=== PATIENT | male | born 2000 | race Caucasian/White ===

== ENCOUNTER 2025-08-30 09:03 | Emergency (ER) | payer BC, SELFPAY ==
[2025-08-30 09:03] VITALS: BP 132/76; PULSE 94; RESP 18; TEMP 36.4; O2SAT 100; BMI 27.1
--- NOTE | 2025-08-30 09:19 | EDS_ITS ---
HPI History of Present Illness Chief Complaint: Lower Extremity Injury Informant: patient and parent Narrative Narrative: 25-year-old male presenting to the emergency room with a chief complaint of right knee pain. Patient states that last night he was standing in between a golf cart and a trailer and the golf cart needed to accelerate to go over a depth. This resulted in the golf cart impacting his leg and he felt into the trailer. He is unsure if the bumper of the golf cart impacted his knee. But he notes pain in the knee particular with bearing weight. He also notes significant swelling. He notes most of his pain appears to be medially anterior. He notes a bruise on the right lateral thigh. PFSH PFS Home Medications ?Medication ?Instructions ?Recorded ?Last Taken ?Type acetaminophen 325 mg capsule 325 mg PO ONCE PRN Unknown History (Tylenol) prednisone 10 mg tablet See Rx Instructions PO DAILY #30 01/10/22 Unknown Rx tabs Allergy/AdvReac Type Severity Reaction Status Date / Time No Known Allergies Allergy Verified 08/30/25 09:05 Social History Smoking Status: Never smoker ROS ROS ED Constitutional Constitutional ED: Denies chills, fever(s) or weight loss Eyes Eyes: Denies change in vision or diplopia ENT ENT ED: Denies ear pain, rhinorrhea or sore throat Cardiovascular Cardiovascular: Denies chest pain, orthopnea, palpitations or racing heartbeat Respiratory/Chest Respiratory/Chest: Denies cough, dyspnea or orthopnea Gastrointestinal Gastrointestinal: Denies abdominal pain, diarrhea, nausea or vomiting Genitourinary Genitourinary ED: Denies dysuria, hematuria or urinary frequency Musculoskeletal Musculoskeletal: Reports other Details: Right knee pain ; Denies arthralgias or myalgias Integumentary Reports other Details: Right thigh contusion ; Denies abscess or rash Neurologic Neurologic: Denies headache(s) or weakness Psychiatric Psychiatric: Denies anxiety, depression, suicidal ideation or suicidal thoughts Endocrine Endocrinology: Denies polydipsia, polyphagia or polyuria Allergic/Immunologic Allergic/Immunologic ED: Denies mouth swelling, tongue swelling or urticaria EXAM Physical Exam Const Vital Signs: 08/30/25 09:03 Temperature 97.5 F L Temperature Source Oral Pulse Rate 94 Respiratory Rate 18 Blood Pressure 132/76 H Blood Pressure Mean 94 Pulse Ox 100 Oxygen Delivery Method Room Air Positive well nourished and well developed General Appearance ED: well developed HEENT Reports normocephalic, head/scalp atraumatic and moist mucous membranes Eyes PERRL and EOMs intact bilaterally Neck no lymphadenopathy, supple and no JVD Resp normal respiratory effort and clear to auscultation bilaterally Cardio regular rate, regular rhythm and no murmurs GI normal to inspection, nondistended, normoactive bowel sounds and non-tender Palpation: soft Back/Spine no CVA tenderness and normal ROM Extremity Extremity Narrative: Patient has a significant amount of swelling in the suprapatellar bursa region. There appears to be joint effusion. Ligaments appear stable although there is some guarding. He is unable to lift up off the bed but is able to produce tension in the lower leg. I do not palpate a patellar deformity or obvious tendon disruption. There is no erythema. There is a small right lateral mid thigh contusion. Neurovascular intact distally. General Extremety ED: Negative for edema General Extremity: Negative for edema Neuro oriented x3 and CN's II-XII intact bilaterally Sensorium / Orientation: alert Motor Exam: strength 5/5 throughout Psych mental status grossly normal Mood & Affect: Negative for depressed or tearful Skin no rashes or lesions noted and no wounds MDM MDM MDM Narrative Medical decision making narrative: Differential diagnosis includes traumatic effusion traumatic bursitis fracture ligamentous injury neurovascular injury My independent interpretation the plain films of the right knee is acute avulsion fracture seen on lateral view. There is a joint effusion. Patiently placed in a knee immobilizer. Explained to the patient that with his effusion and guarding it is difficult to assess the ligaments. However clinically at this time it does feel stable. He is neurovascularly intact distally. He has strong dorsalis pedis posterior tibial pulses. Patient will utilize crutches as needed. He will follow-up with orthopedics. History & Record Review Discussion w/independent historian: Patient and Family (Father) Radiography Diagnostic Testing: Clinical Impression(s) from Imaging Studies Knee X-Ray 08/30/25 09:45 IMPRESSION: Avulsion fracture of the patella with a large knee joint effusion. Reading Location: [facility] Discharge Plan Triage Chief Complaint: Lower Extremity Injury ED Provider: Cristopher Nettles Dx/Rx/DC Orders Clinical Impression: Closed fracture of patella, Acute joint effusion Instructions: ED Patella Fracture Prescriptions: No Action acetaminophen [Tylenol] 325 mg capsule 325 mg PO ONCE PRN prednisone 10 mg tablet See Rx Instructions PO DAILY Qty: 30 0RF Rx Instructions: 40 mg PO daily x 3 days, 30 mg PO daily x 3 days, 20 mg PO daily x 3 days, 10 mg PO daily x 3 days Primary Care Provider: Care Physician,No Primary Referrals: Júnior Sunshine DO [Med Staff - Active Staff, [facility]] - 1 Week [facility] Doctor,Out of [Non-Staff, Medical] Print Language: Indian Disposition Disposition: Home, Self Care
--- OUTSIDE RECORDS SUMMARY | 2025-08-30 09:41 | XMS RPT_ITS | CCD ---
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 Name Role Phone Russell Soriano Primary Care Provider Russell Montes Primary Care Provider Russell Montes Primary Care Provider JACKIE QUIROZ Referring Unavailable LUIS DELGADILLO Attending Unavailable RUSSELL SORIANO Primary Care Unavailable JACKIE QUIROZ Attending Unavailable SELF, SELF Referring Unavailable RUSSELL SORIANO Primary Care Unavailable JACKIE QUIROZ Attending Unavailable SELF, SELF Referring Unavailable RUSSELL SORIANO Primary Care Unavailable SELF, SELF Referring Unavailable RUSSELL SORIANO Primary Care Unavailable AMPARO DIAZ Attending Unavailable Medications Current Medications Medication Drug Class(es) Dates Sig (Normalized) Sig (Original) amoxicillin 500 mg oral capsule (4 sources) Penicillin-class Antibacterial Start: 11-11-2024 End: 11-21-2024 take 1 capsule by mouth every eight hours Amoxicillin 500 MG capsule Indications: Strep pharyngitis Take 1 capsule by mouth every 8 hours for 10 days. 30 capsule 11/11/2024 11/21/2024 Active Start: 09-30-2024 End: 10-10-2024 take 1 capsule by mouth every eight hours Amoxicillin 500 MG capsule Indications: Strep pharyngitis Take 1 capsule by mouth every 8 hours for 10 days. 30 capsule 09/30/2024 10/10/2024 Active Start: 09-12-2024 End: 09-22-2024 take 1 capsule by mouth every twelve hours Amoxicillin 500 MG capsule Take 1 capsule by mouth every 12 hours for 10 days. 20 capsule 09/12/2024 09/22/2024 Active Completed/Discontinued Medications Medication Drug Class(es) Dates Sig (Normalized) Sig (Original) acetaminophen 325 mg oral tablet (4 sources) Start: 09-12-2024 End: 09-12-2024 Acetaminophen (TYLENOL) tablet 325 mg Start: 09-12-2024 End: 09-12-2024 take 1 dose by mouth once 325 mg, Oral, ONCE (IN CLINI C), 1 dose, On Tue09/12/24 at 1700 Problems Active Problems Problem Classification Problem Date Documented Da te Episodic/Chronic Acquired foot deformities (1 source) Hallux valgus; Translations: [Bilateral bunions] Chronic Acquired foot deformities (1 source) Talipes planus; Translations: [Pes planus of both feet] Episodic Acute and chronic tonsillitis (1 source) Hypertrophy of tonsils; Translations: [Hypertrophy of tonsils] 02-19-2025 Chronic Acute and chronic tonsillitis (1 source) Tonsillitis; Translations: [Acute recurrent tonsillitis, unspecified] 02-19-2025 Episodic Unclassified (1 source) Patient encounter status; Translations: [Routine general medical examination at a health care facility] Past or Other Problems Problem Classification Problem Date Documented Da te Episodic/Chronic Fever of unknown origin (3 sources) Fever; Translations: [Fever, unspecified] Onset: 09-12-2024 09-12-2024 Episodic Influenza (3 sources) Influenza due to Influenza B virus; Translations: [Influenza due to other identified influenza virus with other respiratory manifestations] Onset: 09-30-2024 09-30-2024 Episodic Other upper respiratory infections (10 sources) Sore throat symptom; Translations: [Acute pharyngitis, unspecified] Onset: 11-11-2024 09-12-2024 Episodic Results Test Name Value Interpretation Reference Range Facil ity No Panel Informationon 09-30 Interpretation and review of laboratory results Abnormal [facility] POCT INFLUENZA, A Bon 2024 FLUAV RNA SERENITY+probe Ql (Unsp spec) Negative Negative, Not Tested, Invalid, Not Detected [facility] FLUBV RNA SERENITY+probe Ql (Unsp spec) Positive Abnormal Negative, Not Tested, Invalid, Not Detected [facility] POCT RAPID STREP Aon 025 S. pyogenes Ag Ql (Throat) Positive (+/-) [facility] SARS-COV-2 RAPID AG (WIC)on 09-30-2024 SARS-CoV-2 (COVID-19) RNA SERENITY+probe Ql (Unsp spec) Not detected Normal NOT DETECTED [facility] Comment on above: Result Comment: Nega tive results should be treated as presumptive and confirmation with a molecular assay, if necessary, for patient management, may be performed. Negative results do not rule out SARSCoV-2 infection and should not be used as the sole basis for treatment or patient management decisions, including infection control decisions. Negative results should be considered in the context of a patient's recent exposures, history and the presence of clinical signs and symptoms consistent with COVID-19. Performed By: #### C COVAG #### Testing performed at [place] [id number] NARRATIVE This test was performed using lateral flow immunoassay. This test does not differentiate between SARS-CoV and SARS-CoV2. Normal [facility] Comment on above: Performed By: #### C COVAG #### [place] [address] SARS-COV-2 RAPID ANTIGEN (CL INIC ONLY)on 09-30-2024 SARS-CoV-2 (COVID-19) RNA SERENITY+probe Ql (Unsp spec) This test was performed using lateral flow immunoassay. This test does not differentiate between SARS-CoV and SARS-CoV2. [facility] SARS-CoV-2 (COVID-19) RNA NA A+probe Ql (Unsp spec)on 09-30-2024 SARS-CoV-2 (COVID-19) Ag IA.rapid Ql (Resp) Not detected NOT DETECTED [facility] Comment on above: Negative results tre uld be treated as presumptive and confirmation with a molecular assay, if necessary, for patient management, may be performed. Negative results do not rule out SARSCoV-2 infection and should not be used as the sole basis for treatment or patient management decisions, including infection control decisions. Negative results should be considered in the context of a patient's recent exposures, history and the presence of clinical signs and symptoms consistent with COVID-19. [facility] POCT INFLUENZA, A Bon 2024 FLUAV RNA SERENITY+probe Ql (Unsp spec) Negative Negative, Not Tested, Invalid, Not Detected [facility] FLUBV RNA SERENITY+probe Ql (Unsp spec) Negative Negative, Not Tested, Invalid, Not Detected [facility] POCT RAPID STREP Aon 025 S. pyogenes Ag Ql (Throat) Negative (+/-) [facility] SARS-COV-2 RAPID AG (WIC)on 09-12-2024 SARS-CoV-2 (COVID-19) RNA SERENITY+probe Ql (Unsp spec) Not detected Normal NOT DETECTED [facility] Comment on above: Result Comment: Nega tive results should be treated as presumptive and confirmation with a molecular assay, if necessary, for patient management, may be performed. Negative results do not rule out SARSCoV-2 infection and should not be used as the sole basis for treatment or patient management decisions, including infection control decisions. Negative results should be considered in the context of a patient's recent exposures, history and the presence of clinical signs and symptoms consistent with COVID-19. Performed By: #### C COVAG #### [place] [address] NARRATIVE This test was performed using lateral flow immunoassay. This test does not differentiate between SARS-CoV and SARS-CoV2. Normal [facility] Comment on above: Performed By: #### C COVAG #### [place] [address] SARS-COV-2 RAPID ANTIGEN (CL INIC ONLY)on 09-12-2024 SARS-CoV-2 (COVID-19) RNA SERENITY+probe Ql (Unsp spec) This test was performed using lateral flow immunoassay. This test does not differentiate between SARS-CoV and SARS-CoV2. [facility] SARS-CoV-2 (COVID-19) RNA NA A+probe Ql (Unsp spec)on 09-12-2024 SARS-CoV-2 (COVID-19) Ag IA.rapid Ql (Resp) Not detected NOT DETECTED [facility] Comment on above: Negative results tre uld be treated as presumptive and confirmation with a molecular assay, if necessary, for patient management, may be performed. Negative results do not rule out SARSCoV-2 infection and should not be used as the sole basis for treatment or patient management decisions, including infection control decisions. Negative results should be considered in the context of a patient's recent exposures, history and the presence of clinical signs and symptoms consistent with COVID-19. [facility] Urgent Care Visit Reporton 0 01-10-2022 Urgent Care Visit Report [facility] [address] [place] [address] OFFICE VISIT Date of Service: 01/10/22 MR#: [id number] Acct: [id number] Name: YUMIKO PEREZ Rep #: [id number] : 2000 Provider: BEAU Serna Age/Sex: 21/M Location: [facility] Status: Signed Intake Vital Signs 01/10/22 12:33 BP 126/58 H Blood Pressure Location Lt brachial Position Sitting Respiration 16 Pulse 99 Pulse Source Monitor Temp 99.1 F Temp Source Temporal Pulse Oximetry (%) 98 Oxygen Delivery Method room air Intake Visit Reasons: POISON JADIEL Allergies No Known Allergies Allergy (Verified 01/10/22 12:36) Medications acetaminophen 325 mg capsule 325 mg PO ONCE PRN 12/24/19 [History Confirmed 01/10/22] prednisone 10 mg tablet See Rx Instructions PO DAILY #30 tab 01/10/22 [Rx Confirmed 01/10/22] PFSH Social History Smoking Status: Never smoker HPI HPI Details: UYMIKO PEREZ, is a 21 M who presents to the office today for poison jadiel. It is a maculopapular mildly raised erythematous rash in patches with some linear demarcations. There is clear yellowish drainage. He was in poison that he visually identified yesterday. He has developed a severely itchy rash on his forearms up to the axilla and chest both sides. None on his face. No breathing issues. He has had poison jadiel multiple times in the past but never needed steroids. He has been applying calamine lotion with no benefit. ROS Const Constitutional: No chills, fatigue or fever(s) Resp Respiratory: No cough, shortness of breath or wheezing Skin Skin: Positive for rash and other (pruritus) Endo Endocrine: No fatigue Aller/Imm Allergy/Immunologic : No wheezing Exam Const General: cooperative, healthy appearing, comfortable and no acute distress Nutritional Appearance: average body habitus and well nourished Orientation: alert, awake and oriented x3 Resp Effort Inspection: normal respiratory effort, able to speak in complete sentences and no cough Auscultation: Bilateral: Clear to Auscultation Cardio Rhythm: regular rhythm Heart Sounds: no murmurs Skin Other: forearms worst, going up arms to axillae / chest BL. mildly elevated, mildly erythematous, mildly raised maculopapular rash with some linear demarcations and serous drainage. Coding Level of Care Code Off vis,est,level 3 Diagnoses Poison jadiel dermatitis L23.7 Assessment and Plan Assessment and Plan (1) Poison jadiel dermatitis: Status: Acute Plan - BEAU Huerta: Pt identified poison jadiel and has the typical rash. It is extensive and not responding to conservative therapy. Start prednisone taper. No chornic medical issues/medication use. Plan Details Other Medications: New: prednisone 40 mg PO daily x 3 days, 30 mg PO daily x 3 days, 20 mg PO daily x 3 days, 10 mg PO daily x 3 days 30 tabs 0RF 01/10/22 1242 Date Deangelo YANEZ Cosigner Signature: Date (if applicable) CC: Normal [facility] THROAT CULTUREon 05-16-2021 Throat culture SPECIMEN DESCRIPTION THROAT SWAB CULTURE USUAL OROPHARYNGEAL LIZETT * Result Note: Testing performed at [place] [address] * REPORT STATUS 05/18/2021 * Result Note: FINAL * Normal [facility] Comment on above: Performed By: #### T HRC #### [place] [address] Vital Signs Date Time Vital Sign Value Performing Clinician Ira chiu 02-19-2025 14:29-0400 Body height 182.9 cm Luis Delgadillo MD Work Phone: [facility] [employer] 02-19-2025 14:29-0400 Body mass index (BMI) [Ratio] 25.43 kg/m2 Luis Delgadillo MD Work Phone: [facility] 02-19-2025 14:29-0400 Body temperature 98.2 [degF] Luis Delgadillo MD Work Phone: [facility] 02-19-2025 14:29-0400 Body weight 85.05 kg Luis Delgadillo MD Work Phone: [facility] 11-11-2024 10:16-0400 Body height 182.9 cm Jackie Quiroz [employer] Work Phone: [facility] 11-11-2024 10:16-0400 Body mass index (BMI) [Ratio] 25.5 kg/m2 Jackie Quiroz [employer] Work Phone: [facility] 11-11-2024 10:16-0400 Body temperature 98.4 [degF] Jackie Quiroz [employer] Work Phone: [facility] 11-11-2024 10:16-0400 Body weight 85.28 kg Jackie Quiroz [employer] Work Phone: [facility] 11-11-2024 10:16-0400 Diastolic blood pressure 63 mm[Hg] Jackie Quiroz [employer] Work Phone: [facility] 11-11-2024 10:16-0400 Heart rate 107 /min Jackie Quiroz [employer] Work Phone: [facility] 11-11-2024 10:16-0400 Respiratory rate 16 /min Jackie Quiroz [employer] Work Phone: [facility] 11-11-2024 10:16-0400 SaO2% (BldA) [Mass fraction] 98 % Jackie Quiroz [employer] Work Phone: [facility] 11-11-2024 10:16-0400 Systolic blood pressure 138 mm[Hg] Jackietashi Quiroz [employer] Work Phone: [facility] 09-30-2024 10:10-0500 Body height 182.9 cm Jackie Quiroz [employer] Work Phone: [facility] 09-30-2024 10:10-0500 Body mass index (BMI) [Ratio] 26.58 kg/m2 Jackie Quiroz [employer] Work Phone: [facility] 09-30-2024 10:10-0500 Body temperature 98.91 [degF] Jackie Quiroz [employer] Work Phone: [facility] 09-30-2024 10:10-0500 Body weight 88.91 kg Jackie Quiroz [employer] Work Phone: [facility] 09-30-2024 10:10-0500 Diastolic blood pressure 63 mm[Hg] Jackie Quiroz [employer] Work Phone: [facility] 09-30-2024 10:10-0500 Heart rate 102 /min Jackie Quiroz [employer] Work Phone: [facility] 09-30-2024 10:10-0500 Respiratory rate 16 /min Jackie Quiroz [employer] Work Phone: [facility] 09-30-2024 10:10-0500 SaO2% (BldA) [Mass fraction] 100 % Jackie Quiroz [employer] Work Phone: [facility] 09-30-2024 10:10-0500 Systolic blood pressure 130 mm[Hg] Jackie Quiroz [employer] Work Phone: [facility] 09-12-2024 16:39-0500 Body temperature 103.1 [degF] Amparo Dackin PA Work Phone: [facility] 09-12-2024 16:37-0500 Body height 182.9 cm Amparo Dackin PA Work Phone: [facility] 09-12-2024 16:37-0500 Body mass index (BMI) [Ratio] 26.8 kg/m2 Amparo Dackin PA Work Phone: [facility] 09-12-2024 16:37-0500 Body weight 89.63 kg Amparo Dackin PA Work Phone: [facility] 09-12-2024 16:37-0500 Diastolic blood pressure 72 mm[Hg] Amparo Dackin PA Work Phone: [facility] 09-12-2024 16:37-0500 Heart rate 110 /min Amparo Dackin PA Work Phone: [facility] 09-12-2024 16:37-0500 Respiratory rate 18 /min Amparo Dackin PA Work Phone: [facility] 09-12-2024 16:37-0500 SaO2% (BldA) [Mass fraction] 98 % Amparo Dackin PA Work Phone: [facility] 09-12-2024 16:37-0500 Systolic blood pressure 140 mm[Hg] Amparo Dackin PA Work Phone: [facility] 12-11-2020 15:46-0400 BMI (Body Mass Index) 27.8 kg/m2 [facility] 12-11-2020 15:46-0400 Body Temperature 97.39 [degF] [facility] 12-11-2020 15:46-0400 Body weight 92.99 kg [facility] 12-11-2020 15:46-0400 BP Diastolic 72 mm[Hg] [facility] 12-11-2020 15:46-0400 BP Systolic 128 mm[Hg] [facility] 12-11-2020 15:46-0400 Height 182.9 cm [facility] 12-11-2020 15:46-0400 Pulse (Heart Rate) 78 /min [facility] 12-11-2020 15:46-0400 Pulse Oximetry 98 % [facility] 12-11-2020 15:46-0400 Respiratory Rate 16 /min [facility] Encounters Encounter Date Encounter Type Care Provider Facility Start: 02-19-2025 End: 02-19-2025 Office outpatient new 45 minutes Luis Delgadillo MD Work Phone: [facility] Otolaryngology Comment on above: Tonsillar hypertroph y (Primary Dx); Recurrent tonsillitis Start: 02-19-[address] [facility] Start: 11-11-2024 End: 11-11-2024 Office outpatient visit 15 minutes Jackie Quiroz [employer] Work Phone: [facility] Comment on above: Strep pharyngitis (P rimary Dx); Sore throat Start: 11-11-[address] [facility] Start: 09-30-[address] [facility] Start: 09-30-2024 End: 09-30-2024 Office outpatient visit 25 minutes Jackie Quiroz [employer] Work Phone: [facility] Comment on above: Strep pharyngitis (P rimary Dx); Sore throat; Influenza B Start: 09-12-2024 ambulatory SELF SELF [facility] Start: 09-12-2024 End: 09-12-2024 Office outpatient visit 15 minutes Amparo YANEZ Work Phone: [facility] Comment on above: Sore throat (Primary Dx); Fever, unspecified fever cause Start: 12-11-2020 End: 12-11-2020 Office outpatient new 30 minutes Russell Soriano Work Phone: [facility] Comment on above: Bilateral bunions (P rimary Dx); Pes planus of both feet; Routine general medical examination at a health care facility Procedures Date Procedure Procedure Detail Performing Clinician Start: 09-30-2024 Iaadiadoo streptococ cus group a Jackie Quiroz [employer] Work Phone: Start: 09-30-2024 SARS-CoV-2 (COVID-19 ) RNA [Presence] in Unspecified specimen by SERENITY with probe detection Jackie Quiroz [employer] Work Phone: Start: 01-08-2025 Iaadiadoo streptococ cus group a Amparo YANEZ Work Phone: Start: 09-12-2024 SARS-CoV-2 (COVID-19 ) RNA [Presence] in Unspecified specimen by SERENITY with probe detection Amparo YANEZ Work Phone: Plan of Treatment Date Care Activity Detail Author Start: 05-06-2025 Influenza vaccination INFLUENZ A VACCINE (Season Ended) [facility] Start: 05-06-2024 COVID-19 VACCINE ( season) COVID-19 VACCINE ( season) [facility] Start: 05-06-2024 Influenza vaccination INFLUENZA VACC INE (#1) [facility] Start: 02-16-2022 Tetanus vaccination TETANUS [facility] Start: 05-06-2021 Influenza vaccination INFLUENZ A VACCINE (Season Ended) [facility] Start: 2019 Third diphtheria, te tanus and acellular pertussis (DTaP) vaccination TDAP (ADULT) [facility] Start: 2018 Tetanus vaccination TETANUS [facility] Start: 2016 COVID-19 VACCINE (1) COVID-19 VACCIN E (1) [facility] Start: 2015 HIV screening HIV SCREENING DISCUSSION [facility] Start: 2013 HIV screening HIV SCREENING DISCUSSION [facility] Start: 2011 Vaccination for woody n papillomavirus HPV VACCINE ADOL (1 - Male 2-dose series) [facility] Start: 2000 Hepatitis C antibody , confirmatory test HEPATITIS C VIRUS SCREENING [facility] Start: 2000 Hepatitis C screening HEPATITI S C VIRUS SCREENING [facility] Immunizations Immunization Date Immunization Notes Care Provider Fa cility 07-23-2020 influenza virus vaccine, unspecified formulation Amparo YNAEZ Work Phone: [facility] Payers Date Payer Category Payer Managed Care (unspecified) [facility] [id number] 2024 Unknown [id number] 2019 Unknown 2019 Unknown [id number] 2000 Unknown [id number] 2000 Unknown [id number] 2000 Unknown [id number] 2000 Unknown [id number] Social History Date Type Detail Facility Start: 12-11-2020 Tobacco smoking status NHIS Never sm [facility] Start: 12-11-2020 Tobacco use and exposure Never used [facility] Start: 12-11-2020 Alcohol intake Lifetime non-d jeffrey (finding) [facility] Start: 12-11-2020 History SDOH Alcohol Frequency 1 [facility] Start: 2000 Sex Assigned At Not on file [facility] Start: 09-12-2024 End: 02-19-2025 Alcoholic beverage intake Current drinker of alcohol (finding) [facility] Start: 12-11-2020 End: 02-19-2025 History of Social function [facility] Start: 12-11-2020 End: 02-19-2025 Alcohol Use Disorder Identification Test - Consumption [AUDIT-C] [facility] How often to you hav e a drink containing alcohol? Never [facility] Average Number of Drinks Not on file [facility] Start: 12-02-2020 Sex Male (finding) [facility] Functional Status Date Assessment Result Facility 12-11-2020 Are you deaf, or do you have serious difficulty hearing No 12/11/2020 3:51 PM EDT Dai Smith LPN [facility] 12-11-2020 Are you blind, or do you have serious difficulty seeing, even when wearing glasses No 12/11/2020 3:51 PM EDT Dai Smith LPN [facility] 12-11-2020 Do you have serious difficulty walking or climbing stairs No 12/11/2020 3:51 PM EDT Dai Smith LPN [facility] 12-11-2020 Do you have difficul ty dressing or bathing No 12/11/2020 3:51 PM EDT Dai Smith LPN [facility] 12-11-2020 Because of a physica l, mental, or emotional condition, do you have difficulty doing errands alone such as visiting a physician's office or shopping No 12/11/2020 3:51 PM EDT Dai Smith LPN [facility] Mental Status Date Assessment Result Facility 12-11-2020 Because of a physica l, mental, or emotional condition, do you have serious difficulty concentrating, remembering, or making decisions No 12/11/2020 3:51 PM EDT Dai Smith LPN [facility] Clinical Notes 09-12-2024 to 02-19-2025 Jarrod Salazar - 02/19/2025 2:30 PM Griselda Delgadillo MD - 02/19/2025 2:30 PM Natalee Quiroz APRN-AIXA - 11/11/2024 10:15 AM Delio Mejia - 09/30/2024 9:50 AM EST Note Date & Type Note Facility 02-19-2025 History of Presen t illness Narrative HISTORY OF PRESENT ILLNESS- Yumiko Perez is a 24 y.o. male who comes in with the following complaint(s): sore throat Has had strep 3 to 4 times this past winter. Still has tonsils ENT History & Physical Chief Complaint: New Patient (Sore throat ) Referring Provider: Jackie Quiroz APRN* HPI: Yumiko Perez is a 24 y.o. male who presents with recurrent sore throat Has had 4 episodes of strep throat this past winter requiring antibiotics. He reports that he thinks it may be related to the partner he was dating at the time who was a strep carrier, as he notes the strep throat seemed to stop after they stopped dating. He gets occasional sore throat from dry mouth. The following areas of the chart have been personally reviewed: Tobacco Allergies Meds Problems Med Hx Surg Hx Fam Hx Review of Systems: General: Negative Eyes: Negative ENT: Per HPI Heart: Negative Respiratory: Negative GI: Negative : Negative Skin: Negative Neuro: Negative Psych: Negative Endocrine: Negative Heme/lymph: Negative Past Medical History: No past medical history on file. Past Surgical History: No past surgical history on file. Medications: No current outpatient medications on file. Allergies: No Known Allergies Family History: Family History Problem Relation Age of Onset Diabetes Maternal Grandfather Social History: Social History Tobacco Use Smoking status: Never Smokeless tobacco: Never Vaping Use Vaping status: Never Used Substance Use Topics Alcohol use: Yes Drug use: Never Objective: Vitals: 02/19/25 1429 Temp: 98.2 F (36.8 C) General: No acute distress Head: Normocephalic, atraumatic Face: Bilateral symmetric movement, sensation intact Eyes: Extraocular movements intact, no scleral icterus Ears: No external deformity, hearing grossly intact Nose: Nasal cavities patent, no lesions Mouth: Moist mucous membranes, no lesions, hypertrophic tonsils 2+ Neck: Supple, nontender, no lymphadenopathy Cardiovascular: Intact peripheral perfusion Pulmonary: Equal chest rise, nonlabored respirations, no stridor Skin: Warm and dry, no lesions of the head and neck Neuro: Alert and oriented, no cranial nerve deficits Psych: Normal affect Assessment and Plan: Yumiko was seen today for new patient. Diagnoses and all orders for this visit: Tonsillar hypertrophy Recurrent tonsillitis -- Discussed surgical intervention with tonsillectomy. Discussed risks of surgery including pain, bleeding, infection, scarring, failure to achieve desired result, need for additional procedures, inability to resolve complications, risks of anesthesia, bad breath while healing, oropharyngeal stenosis, need to return to the operating room for control of oropharyngeal hemorrhage. Discussed alternatives including no surgery. -- Given that this cluster of strep throat seemed to have a plausible trigger and only this past year, we discussed deferring surgery and observing for now. We discussed that if he continues to have recurrent strep throat then we can consider surgery -- RTC PRN Luis Delgadillo MD documented in this encounter [facility] 11-11-2024 History of Presen t illness Narrative DEMIAN Perez 2000 presents to the [facility] with Chief Complaint Patient presents with Sore Throat Main historian: self Patient presents with Sore Throat Associated symptoms: sore throat, swollen lymph nodes, white patches in back of throat, swollen tonsils. Tactile fever. Onset: 3 days ago Self treatments: tylenol motrin Alleviating factors cold liquid Aggravating factors: eating Exposures: none known Last visit: Sep for corina. Hx of strep throat. Symptoms resolved with ATB. History No Known Allergies Current Outpatient Medications Medication Sig Amoxicillin 500 MG capsule Take 1 capsule by mouth every 8 hours for 10 days. Family History Problem Relation Age of Onset Diabetes Maternal Grandfather No past medical history on file. No past surgical history on file. Social History Socioeconomic History Marital status: Single Spouse name: Not on file Number of children: Not on file Years of education: Not on file Highest education level: Not on file Occupational History Not on file Tobacco Use Smoking status: Never Smokeless tobacco: Never Vaping Use Vaping status: Never Used Substance and Sexual Activity Alcohol use: Yes Drug use: Never Sexual activity: Never Other Topics Concern Service Not Asked Blood Transfusions Not Asked Caffeine Concern Not Asked Occupational Exposure Not Asked Hobby Hazards Not Asked Sleep Concern Not Asked Stress Concern Not Asked Weight Concern Not Asked Special Diet Not Asked Back Care Not Asked Exercise Not Asked Bike Helmet Not Asked Seat Belt Not Asked Domestic Violence No Social History Narrative Not on file Social Drivers of Health Financial Resource Strain: Not on file Food Insecurity: Not on file Transportation Needs: Not on file Physical Activity: Not on file Stress: Not on file Social Connections: Not on file Personal Safety: Not on file Housing Stability: Not on file ROS Review of Systems 8 systems reviewed with patient, negative unless specifically mentioned in history of present illness PHYSICAL EXAM Visit Vitals BP 138/63 Pulse 107 Temp 98.4 F (36.9 C) Resp 16 Ht 1.829 m (6') Wt 85.3 kg (188 lb) SpO2 98% BMI 25.50 kg/m Physical Exam Vitals and nursing note reviewed. Constitutional: General: He is not in acute distress. Appearance: Normal appearance. He is well-developed. He is not ill-appearing or diaphoretic. HENT: Head: Normocephalic. Right Ear: Tympanic membrane normal. Left Ear: Tympanic membrane normal. Nose: Nose normal. Mouth/Throat: Mouth: Mucous membranes are moist. Pharynx: Posterior oropharyngeal erythema present. Tonsils: Tonsillar exudate present. 2+ on the right. 2+ on the left. Eyes: Pupils: Pupils are equal, round, and reactive to light. Cardiovascular: Rate and Rhythm: Regular rhythm. Tachycardia present. Heart sounds: Normal heart sounds. Pulmonary: Effort: Pulmonary effort is normal. No respiratory distress. Breath sounds: Normal breath sounds. Musculoskeletal: Cervical back: Neck supple. Lymphadenopathy: Cervical: Cervical adenopathy present. Skin: General: Skin is warm and dry. Capillary Refill: Capillary refill takes less than 2 seconds. Neurological: General: No focal deficit present. Mental Status: He is alert and oriented to person, place, and time. Psychiatric: Mood and Affect: Mood normal. Behavior: Behavior normal. RESULTS No results found for this or any previous visit (from the past 2 hours). ASSESSMENT/PLAN 1. Strep pharyngitis 2. Sore throat Orders Placed This Encounter AMB REFERRAL TO ENT Amoxicillin 500 MG capsule Clinically consistent with strep throat. Treated with amoxicillin. Referral to ENT for recurrent strep throat. If symptoms worsen patient was advised to follow up in our office, primary care provider or the Emergency Dept. Benefits, Risks, Contraindications, and Complications of recommended treatments were explained. The patient verbalized understanding and agrees to proceed with plan. WHITNEY Salinas 11/11/2024 documented in this encounter [facility] 09-30-2024 History of Presen t illness Narrative Main historian: self Patient presents with Sore Throat and Generalized Body Aches (Sore throat x 1 day also having boy aches and headache. Had strep x 3 weeks ago was treated with Amox. ) Associated symptoms: chills/fever Onset: 09/29 Self treatments: Tylenol Alleviating factors helped some. Aggravating factors: swallowing/eating Exposures: No Last visit: 09/12/24 DEMIAN Perez 2000 presents to the [facility] with Chief Complaint Patient presents with Sore Throat Generalized Body Aches Sore throat x 1 day also having boy aches and headache. Had strep x 3 weeks ago was treated with Amox. Main historian: self Patient presents with Sore Throat and Generalized Body Aches (Sore throat x 1 day also having boy aches and headache. Had strep x 3 weeks ago was treated with Amox. ) Associated symptoms: chills/fever Onset: 09/29 Self treatments: Tylenol Alleviating factors helped some. Aggravating factors: swallowing/eating Exposures: No Last visit: 09/12/24 History No Known Allergies Current Outpatient Medications Medication Sig Amoxicillin 500 MG capsule Take 1 capsule by mouth every 8 hours for 10 days. Family History Problem Relation Age of Onset Diabetes Maternal Grandfather No past medical history on file. No past surgical history on file. Social History Socioeconomic History Marital status: Single Spouse name: Not on file Number of children: Not on file Years of education: Not on file Highest education level: Not on file Occupational History Not on file Tobacco Use Smoking status: Never Smokeless tobacco: Never Vaping Use Vaping status: Never Used Substance and Sexual Activity Alcohol use: Yes Drug use: Never Sexual activity: Never Other Topics Concern Service Not Asked Blood Transfusions Not Asked Caffeine Concern Not Asked Occupational Exposure Not Asked Hobby Hazards Not Asked Sleep Concern Not Asked Stress Concern Not Asked Weight Concern Not Asked Special Diet Not Asked Back Care Not Asked Exercise Not Asked Bike Helmet Not Asked Seat Belt Not Asked Domestic Violence No Social History Narrative Not on file Social Determinants of Health Financial Resource Strain: Not on file Food Insecurity: Not on file Transportation Needs: Not on file Physical Activity: Not on file Stress: Not on file Social Connections: Not on file Intimate Partner Violence: Not on file Housing Stability: Not on file ROS Review of Systems 8 systems reviewed with patient, negative unless specifically mentioned in history of present illness PHYSICAL EXAM Visit Vitals BP 130/63 (BP Location: Left arm, BP Position: Sitting) Pulse 102 Temp 98.9 F (37.2 C) (Oral) Resp 16 Ht 1.829 m (6') Wt 88.9 kg (196 lb) SpO2 100% BMI 26.58 kg/m Physical Exam Vitals and nursing note reviewed. Constitutional: General: He is not in acute distress. Appearance: Normal appearance. He is well-developed. He is ill-appearing. He is not diaphoretic. HENT: Head: Normocephalic. Right Ear: Tympanic membrane normal. Left Ear: Tympanic membrane normal. Nose: Nose normal. Mouth/Throat: Mouth: Mucous membranes are moist. Pharynx: Oropharynx is clear. Posterior oropharyngeal erythema present. Eyes: Pupils: Pupils are equal, round, and reactive to light. Cardiovascular: Rate and Rhythm: Regular rhythm. Tachycardia present. Heart sounds: Normal heart sounds. Pulmonary: Effort: Pulmonary effort is normal. No respiratory distress. Breath sounds: Normal breath sounds. Musculoskeletal: Cervical back: Neck supple. Lymphadenopathy: Cervical: Cervical adenopathy present. Skin: General: Skin is warm and dry. Capillary Refill: Capillary refill takes less than 2 seconds. Neurological: General: No focal deficit present. Mental Status: He is alert and oriented to person, place, and time. Psychiatric: Mood and Affect: Mood normal. Behavior: Behavior normal. RESULTS Recent Results (from the past 2 hour(s)) SARS-COV-2 RAPID ANTIGEN (CLINIC ONLY) Collection Time: 09/30/24 10:11 AM Specimen: NARES Result Value Ref Range SARS-COV-2 Rapid Antigen NOT DETECTED NOT DETECTED NARRATIVE -1 This test was performed using lateral flow immunoassay. This test does not differentiate between SARS-CoV and SARS-CoV2. POCT INFLUENZA, A B Collection Time: 09/30/24 10:25 AM Result Value Ref Range POCT Influenza A Negative Negative, Not Tested, Invalid, Not Detected POCT Influenza B Positive (A) Negative, Not Tested, Invalid, Not Detected POCT RAPID STREP A Collection Time: 09/30/24 10:25 AM Result Value Ref Range POCT RAPID STREP A pos (+/-) ASSESSMENT/PLAN 1. Strep pharyngitis 2. Sore throat 3. Influenza B Orders Placed This Encounter SARS-COV-2 RAPID ANTIGEN (CLINIC ONLY) POCT INFLUENZA, A B POCT RAPID STREP A Amoxicillin 500 MG capsule Rapid strep and Flu B positive. Treated with amoxicillin. Continue OTC meds and supportive home care. If symptoms worsen patient was advised to follow up in our office, primary care provider or the Emergency Dept. Benefits, Risks, Contraindications, and Complications of recommended treatments were explained. The patient verbalized understanding and agrees to proceed with plan. WHITNEY Salinas 09/30/2024 documented in this encounter [facility] 09-12-2024 History of Presen t illness Narrative Main historian: self Patient presents with Body Aches Associated symptoms: chills, fever, headaches, lightheaded, body aches, sore throat Onset: Tuesday Self treatments: ibuprofen Alleviating factors none Aggravating factors: none Exposures: none Last visit: N/A HPI Yumiko Perez presents to the [facility] with Chief Complaint Patient presents with Generalized Body Aches Sore Throat Patient presents today with concerns for body aches, chills, fevers, and a sore throat for 3 days. Endorses associated headache, and intermittent lightheadedness. Patient states he has been utilizing ibuprofen, last dose approximately 11:00 a.m.. No known sick contacts. Denies vomiting, diarrhea, nausea, chest pain, shortness breath, abdominal pain, dizziness, cough, congestion, sinus pressure, or ear pain. Denies difficulty swallowing, or breathing. The following sections were personally reviewed by me: Allergies Meds Problems Med Hx Surg Hx Fam Hx ROS Review of Systems 8 systems reviewed with patient, negative unless specifically mentioned in history of present illness PHYSICAL EXAM Visit Vitals BP 140/72 (BP Location: Right arm, BP Position: Sitting) Pulse 110 Temp 103.1 F (39.5 C) (Oral) Resp 18 Ht 1.829 m (6') Wt 89.6 kg (197 lb 9.6 oz) SpO2 98% BMI 26.80 kg/m Physical Exam Vitals and nursing note reviewed. Constitutional: General: He is not in acute distress. Appearance: Normal appearance. HENT: Head: Normocephalic. Right Ear: Tympanic membrane, ear canal and external ear normal. Left Ear: Tympanic membrane, ear canal and external ear normal. Nose: Nose normal. No congestion or rhinorrhea. Mouth/Throat: Mouth: Mucous membranes are moist. No oral lesions. Pharynx: Oropharynx is clear. Uvula midline. Posterior oropharyngeal erythema present. No pharyngeal swelling, oropharyngeal exudate or uvula swelling. Tonsils: Tonsillar exudate present. No tonsillar abscesses. 2+ on the right. 2+ on the left. Eyes: Pupils: Pupils are equal, round, and reactive to light. Cardiovascular: Rate and Rhythm: Regular rhythm. Tachycardia present. Pulses: Normal pulses. Heart sounds: Normal heart sounds. Pulmonary: Effort: Pulmonary effort is normal. No respiratory distress. Breath sounds: Normal breath sounds. No stridor. No wheezing, rhonchi or rales. Abdominal: Palpations: Abdomen is soft. Musculoskeletal: General: Normal range of motion. Lymphadenopathy: Cervical: Cervical adenopathy present. Skin: General: Skin is warm and dry. Neurological: General: No focal deficit present. Mental Status: He is alert and oriented to person, place, and time. Psychiatric: Mood and Affect: Mood normal. Behavior: Behavior normal. Judgment: Judgment normal. RESULTS Recent Results (from the past 1 hour(s)) SARS-COV-2 RAPID ANTIGEN (CLINIC ONLY) Collection Time: 09/12/24 5:00 PM Specimen: NARES Result Value Ref Range SARS-COV-2 Rapid Antigen NOT DETECTED NOT DETECTED NARRATIVE -1 This test was performed using lateral flow immunoassay. This test does not differentiate between SARS-CoV and SARS-CoV2. POCT INFLUENZA, A B Collection Time: 09/12/24 5:06 PM Result Value Ref Range POCT Influenza A Negative Negative, Not Tested, Invalid, Not Detected POCT Influenza B Negative Negative, Not Tested, Invalid, Not Detected POCT RAPID STREP A Collection Time: 09/12/24 5:06 PM Result Value Ref Range POCT RAPID STREP A neg (+/-) ASSESSMENT/PLAN 1. Sore throat 2. Fever, unspecified fever cause Orders Placed This Encounter SARS-COV-2 RAPID ANTIGEN (CLINIC ONLY) POCT INFLUENZA, A B POCT RAPID STREP A Acetaminophen (TYLENOL) tablet 325 mg Acetaminophen (TYLENOL) tablet 325 mg DISCONTD: Amoxicillin 500 MG capsule Amoxicillin 500 MG capsule COVID, influenza, and rapid strep testing negative. Clinically consistent with strep pharyngitis. Will move forward with amoxicillin, patient has tolerated in the past. Discussed the risks, and possible side effects of taking amoxicillin. Patient febrile in clinic. Tylenol given, patient tolerated well. Discussed supportive treatments, OTC medications and at home care including acetaminophen/NSAIDs for fever management as tolerated. Encouraged patient to follow up with PCP. Encouraged patient to increase fluids and rest. Discussed red flag signs and symptoms that should prompt return to the clinic or ER. Patient agreeable to plan. Work note provided. If symptoms worsen patient was advised to follow up in our office, primary care provider or the Emergency Dept. Benefits, Risks, Contraindications, and Complications of recommended treatments were explained. The patient understands and agrees to proceed with the plan. documented in this encounter [facility] Evaluation note Diagnosis Sore throat- Primary Acute pharyngitis Fever, unspecified fever cause [facility] Strep pharyngitis- Primary Streptococcal sore throat Sore throat Acute pharyngitis Influenza B Influenza with other respiratory manifestations [facility] Diagnosis Strep pharyngitis- Primary Streptococcal sore throat Sore throat Acute pharyngitis [facility] Diagnosis Tonsillar hypertrophy- Primary Hypertrophy of tonsils alone Recurrent tonsillitis Acute tonsillitis [facility] Attachments The following attachments cannot be sent through Care Everywhere. * Sore Throat (Azerbaijani) [facility] Attachments The following attachments cannot be sent through Care Everywhere. * Influenza (Azerbaijani) * Strep Throat (Azerbaijani) [facility] Attachments The following attachments cannot be sent through Care Everywhere. * Strep Throat (Azerbaijani) documented in this [facility] Reason for Referral Status Reason Specialty Diagnoses / Procedures Referred By Contact Referred To Contact Pending Review Diagnoses Bilateral bunions Pes planus of both feet Russell Soriano, BEAU [address] [place] [phone] Instructions * Patient Instructions* Russell Soriano PA - 12/11/2020 3:45 PM EDT 1. Referral to foot provider. 2. Follow up annually and as needed. documented in this encounter History of Present Illness * Russell Soriano PA - 12/11/2020 3:45 PM EDT History of Present Illness New Patient Last PCP & Labs: 1-2 years ago, [facility] (Dr. Garg) Conditions: none Specialists: none Foot Issues Yumiko Perez presents today for evaluation of foot issues. Onset: yeas. Severity: mild to moderate. Status: worse. Frequency: daily, constant. Location: bilateral feet. Quality: achy. Aggravating factors: being on feet and physical activity. Alleviating factors: none. Review of Systems Constitutional: Negative for chills, diaphoresis, fatigue and fever. Eyes: Negative. Respiratory: Negative for cough, shortness of breath and wheezing. Cardiovascular: Negative for chest pain, palpitations and leg swelling. Gastrointestinal: Negative for abdominal pain and blood in stool. Genitourinary: Negative for dysuria. Musculoskeletal: Positive for arthralgias. Negative for back pain. Skin: Negative for color change, pallor, rash and wound. Neurological: Negative for dizziness, weakness, numbness and headaches. Hematological: Negative for adenopathy. Does not bruise/bleed easily. Psychiatric/Behavioral: Negative for dysphoric mood, self-injury, sleep disturbance and suicidal ideas. The patient is not nervous/anxious. Vitals: Blood pressure 128/72, pulse 78, temperature 97.4 F (36.3 C), temperature source Temporal, resp. rate 16, height 1.829 m (6'), weight 93 kg (205 lb), SpO2 98 %. Physical Exam Vitals and nursing note reviewed. Constitutional: Appearance: Normal appearance. Eyes: Pupils: Pupils are equal, round, and reactive to light. Neck: Thyroid: No thyromegaly. Cardiovascular: Rate and Rhythm: Normal rate and regular rhythm. Heart sounds: Normal heart sounds. No murmur. Pulmonary: Effort: Pulmonary effort is normal. No respiratory distress. Breath sounds: Normal breath sounds. Abdominal: General: Bowel sounds are normal. Palpations: Abdomen is soft. Musculoskeletal: Cervical back: Normal range of motion. Right lower leg: No edema. Left lower leg: No edema. Right foot: Normal range of motion. Bunion present. No tenderness. Left foot: Normal range of motion. Bunion present. No tenderness. Comments: Evidence of flattened medial arch. Bilateral bunions at the MTP's. Skin: General: Skin is warm and dry. Findings: No bruising, erythema, lesion or rash. Neurological: General: No focal deficit present. Mental Status: He is alert and oriented to person, place, and time. Mental status is at baseline. Psychiatric: Mood and Affect: Mood normal. Behavior: Behavior normal. Thought Content: Thought content normal. Judgment: Judgment normal. Neurologic Exam Mental Status Oriented to person, place, and time. Cranial Nerves CN III, IV, Pupils are equal, round, and reactive to light. Assessment and Plan 1. Bilateral bunions - AMB REFERRAL TO PODIATRY 2. Pes planus of both feet - AMB REFERRAL TO PODIATRY 3. Routine general medical examination at a health care facility Medical Decision Making Referral to foot provider. Follow up annually and prn. Total time spent with patient both [id number] and [id number] today was between 30-44 minutes. documented in this encounter Assessments Diagnosis Bilateral bunions- Primary Bunion Pes planus of both feet Routine general medical examination at a health care facility Summary Purpose Family History No Family History Records FoundNo Family History Records FoundNo Family History Records Found Advance Directives No Advanced Directives Records FoundNo Advanced Directives Records FoundNo Advanced Directives Records Found Additional Source Comments Reason for Visit (unrecogniz ed section and content) Reason Comments Establish Care Reason Comments Generalized Body Aches Sore Throat Reason Comments Sore Throat Generalized Body Aches Sore throat x 1 d ay also having boy aches and headache. Had strep x 3 weeks ago was treated with Amox. Reason Comments Sore Throat Reason Comments New Patient Sore throat Specialty Diagnoses / Procedures Referred By Jesus donahue Referred To Contact Otolaryngology Diagnoses Sore throat Jackie Quiroz, [employer] [address] [place] [address] Phone: tel: fax: Luis Delgadillo MD [address] [place] [address] Phone: tel: fax: Referral ID Status Reason Start Date Expiration Date Visits Re quested Visits Authorized [id number] Closed 11/11/2024 12/06/2025 1 1 (unrecognized sect ion and content) No Status Records FoundNo Status Records FoundNo Status Records Found INFORMATION SOURCE (unrecogn ized section and content) DATE CREATED AUTHOR 05/19/2021 [facility] DATE CREATED AUTHOR AUTHOR'S ORGANIZ ATION 01/11/2022 [facility] DATE CREATED AUTHOR AUTHOR'S ORGANIZ ATION 02/22/2025 [facility] Care Teams (unrecognized sec tion and content) Artificial Stone Applicator Relationship Specialty Start Date End Date Russell Soriano PA [address] [phone] PCP - General Physician Stripping Shovel Oiler 12/11/20 Artificial Stone Applicator Relationship Specialty Start Date End Date Russell Soriano PA [address] [phone] PCP - General Physician Stripping Shovel Oiler 12/11/20 Artificial Stone Applicator Relationship Specialty Start Date End Date Russell Soriano PA [address] [phone] PCP - General Physician Stripping Shovel Oiler 12/11/20 Artificial Stone Applicator Relationship Specialty Start Date End Date Russell Soriano PA [address] [phone] PCP - General Physician Stripping Shovel Oiler 12/11/20 FOR RECORDS PERTAINING TO PATIENTS WHO ARE OR HAVE BEEN ENROLLED IN A CHEMICAL DEPENDENCY/SUBSTANCEABUSE PROGRAM, SOME INFORMATION MAY BE OMITTED. This clinical summary was aggregated from multiple sources. Caution should be exercised in using it in the provision of clinical care. This summary normalizes information from multiple sources, and as a consequence, information in this document may materially change the coding, format and clinical context of patient data. In addition, data may be omitted in some cases. CLINICAL DECISIONS SHOULD BE BASED ON THE PRIMARY CLINICAL RECORDS. [facility] [email or web address] [facility]. provides no warranty or guarantee of the accuracy or completeness of information in this document.
--- NOTE | 2025-08-30 09:45 | RAD_ITS ---
PROCEDURE: KNEE 4 OR MORE VIEWS 08/30/2025 REASON FOR EXAM: INJURY AND PAIN TECHNIQUE: Procedure Code: RADKN Modality: DX Procedure: KNEE 4 OR MORE VIEWS COMPARISON: None. Damage FINDINGS: There is an avulsion fracture of the articular surface of the lower pole of the patella. There is a large knee joint effusion. There is no significant arthropathy. The periarticular soft tissues are normal. RAD/Knee 4 or More Views IMPRESSION: Avulsion fracture of the patella with a large knee joint effusion. Reading Location: [id number]
[2025-08-30 11:45] VITALS: BP 132/76; PULSE 94; RESP 18; TEMP 36.4; O2SAT 100
== END 2025-08-30 12:09 | disposition home or self-care (01) ==
PROVIDERS: Emergency Provider Emergency Medicine; Visit Provider Emergency Medicine
DX: S82.001A Unspecified fracture of right patella, initial encounter for closed fracture (principal); S70.11XA Contusion of right thigh, initial encounter; M25.461 Effusion, right knee; V86 Occupant of special all-terrain or other off-road motor vehicle, injured in transport accident
CPT/HCPCS: 73564; 99284